=== PATIENT | female | born 1945 | race Asian ===

== ENCOUNTER 2021-10-04 15:04 | Outpatient (REF) | payer MEDICARE, OTHER, SELFPAY ==
--- NOTE | 2021-11-24 14:35 | MHC.AU.ANO ---
Adult Audiological Evaluation Date of Visit: 10/04/21 Reason for Appointment: Patient has been experiencing increased hearing difficulty. 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 Patient reports an attempt to repair it in the past was not successful, and they elected to leave it as is. She has begun having difficulty hearing out of the right ear as well. Does patient feel they have a hearing loss?: Yes If Yes, Which Ear?: Both Ears Has hearing been tested previously?: No Hearing Handicap Inventory: HHIE SCORE: 20 Based on HHIE score, patient has: Mild to moderate perceived hearing handicap Ear History: Ear Deformity: None Reported Recent Ear Drainage: Recent Ear Pain: Right Ear Family History of Hearing Loss?: No History of Ear Wax Buildup: None Reported Bothersome Tinnitus/Ringing/Noises in Ears: None Reported Ear used on the phone: Right Ear Blocked/Full Sensation in Ear(s): None Reported History of occupational noise exposure?: No History: No Medical History: Medical History: High Blood Pressure Otoscopy: Right Ear: Unremarkable Left Ear: Tympanic membrane perforation Tympanometry: Tympanometry performed due to: To assess integrity of the middle ear system Right Ear: Normal Middle Ear System (Type A) Left Ear: Flat tympanogram with large ear canal volume, consistent with Tympanic Membrane Perforation Hearing Evaluation: Transducer(s) Used: Insert Earphones Method: Conventional Audiometry Stimuli Used: Pure Tones Right Ear: Description of Hearing: Mild to moderate sensorineural hearing loss Left Ear: Description of Hearing: Severe mixed hearing loss Speech Recognition Threshold (SRT): Could not test- Patient's primary language is Chinese Word Discrimination: Could not test- Patient's primary language is Chinese Recommendations: Audiological re-evaluation in one year. Initially, patient's insurance appeared in our system as [employer] and hearing aid options were discussed. Upon looking up specific details after the appointment, it was revealed to be the [employer] Premium Assistance program, which does not offer hearing aid benefits. Patient opted to not pursue hearing aids at this time. It is suggested that the patient and her family contact [employer] to determine if she is eligible for other plans that do offer hearing aid coverage. Diagnosis: Primary Diagnosis: H90.3 Bilateral Sensorineural Hearing Loss Signature: Provider: Eric Walters, CCC-A
== END 2021-10-04 15:05 | disposition home or self-care (01) ==
LOC: HO.SH 15:04
PROVIDERS: Visit Provider Internal Medicine
DX: Z01.118 Encounter for examination of ears and hearing with other abnormal findings (principal); Z46.1 Encounter for fitting and adjustment of hearing aid; H90.3 Sensorineural hearing loss, bilateral
CPT/HCPCS: 92553; 92567; 92591; V5275